=== PATIENT | female | born 1960 ===

== ENCOUNTER → 2020-03-15 | Outpatient (CLI) | payer OTHER | LOC: SJCVCIMAG 03-08 12:00 | PROVIDERS: ATTEND Nuclear Medicine Nuclear Cardiology | DX: I87.2 Venous insufficiency (chronic) (peripheral) (principal); I73.9 Peripheral vascular disease, unspecified; M79.89 Other specified soft tissue disorders; I83.93 Asymptomatic varicose veins of bilateral lower extremities; Z92.0 Personal history of contraception; Z79.899 Other long term (current) drug therapy ==